=== PATIENT | female | born 1955 | race Caucasian/White ===

== ENCOUNTER 2025-10-03 08:27 | Outpatient (CLI) | payer MEDICARE, OTHER, SELFPAY ==
--- NOTE | ~2025-10-03 | US_ITS ---
US abdomen limited Indication: K76.0 - Fatty (change of) liver, not elsewhere classified Comparison: None Technique: Mc-scale and color Doppler images were obtained. Findings: LIVER: Moderate increased echogenicity of the liver. . GALLBLADDER/BILIARY: Unremarkable.No cholelithiais, wall thickening or pericholecystic fluid. No biliary dilatation. CBD 4 mm. [place] sign negative. PANCREAS: Pancreas limited by bowel gas. Right Kidney: The right kidney was not imaged. Impression: 1. Moderate hepatic steatosis versus hepatocellular disease Reviewed, dictated and finalized at location P. [facility] LEADER Impression: 1. Moderate hepatic steatosis versus hepatocellular disease
== END 2025-10-03 08:28 | disposition home or self-care (01) ==
PROVIDERS: PCP Family Medicine; Visit Provider Nurse Practitioner Family
DX: K76.0 Fatty (change of) liver, not elsewhere classified (principal)
CPT/HCPCS: 76705